=== PATIENT | female | born 1990 | race Caucasian/White ===

== ENCOUNTER 2016-10-09 06:49 | Inpatient (IN) | payer OTHER, MEDICAID ==
[~2016-10-09] VITALS: Ht 177.8 cm; Wt 146.3 kg
--- NOTE | ~2016-10-09 | OR ---
PATIENT'S NAME: MENA ALBA [facility] AGE: 26 Y [address] ROOM: [place] [id number] LOCATION: [facility] ADMIT DATE: 10/09/2016 OR/Procedure Report DISCHARGE DATE: FAMILY PHYSICIAN: PHYSICIAN, NO ATTENDING PHYSICIAN: NAEEM CEE SURGEON: Naeem Cee MD [employer] MECHANIC: DATE OF PROCEDURE: 10/09/2016 PROCEDURE PERFORMED: Spontaneous vaginal delivery over intact perineum. PRE-DELIVERY DIAGNOSES: 1. Intrauterine at 39 weeks and 1 day. 2. History of infant with holoprosencephaly. 3. Obesity. POST-DELIVERY DIAGNOSES: 1. Intrauterine at 39 weeks and 1 day. 2. History of infant with holoprosencephaly. 3. Obesity. ANESTHESIA: With epidural. FINDINGS: A viable female weighing 7 pounds 5 ounces. score of 8 and 9. Intact placenta. Three-vessel cord. Normal-appearing cervix, vagina, and perineum. Right periurethral laceration, hemostatic at completion of repair. ESTIMATED BLOOD LOSS: 400 mL. ANTIBIOTICS: None indicated. SPECIMENS: Cord blood. Placenta was not sent for pathology. COMPLICATIONS: None. DISPOSITION: The patient and remained in room. INDICATIONS FOR PROCEDURE: The patient is a 26-year-old G4, P3-0-0-3, who presented for a scheduled elective induction of labor at 39 weeks on October 09, 2016. The patient's cervix was 1 cm dilated on presentation and she was given a dose of Cytotec. She then progressed to 3 cm and was started on IV Pitocin. She progressed all the rest of the way to complete. DESCRIPTION OF PROCEDURE: The patient was placed in dorsal lithotomy PATIENT'S NAME: MENA ALBA [facility] AGE: 26 Y [address] ROOM: [address] [id number] LOCATION: [facility] ADMIT DATE: 10/09/2016 OR/Procedure Report DISCHARGE DATE: FAMILY PHYSICIAN: PHYSICIAN, NO ATTENDING PHYSICIAN: NAEEM CEE position, and vagina was prepped in the usual sterile fashion. She was placed in the dorsal lithotomy position in stirrups. With maternal expulsive efforts, the head was delivered. With the assistance of gentle downward and then upward traction, the shoulders were delivered, followed by the remainder of the body. Infant was placed on mother's chest and was noted to have a vigorous cry. The cord was clamped and cut. Cord blood was obtained and IV Pitocin was started per protocol. Gentle downward traction was placed on the cord and the placenta was delivered spontaneously and intact shortly thereafter. The cervix, vagina, and perineum were inspected for lacerations with the findings of right periurethral laceration, which was repaired per routine with 4-0 Vicryl. The patient was noted to have some increased free flow. Bimanual massage was performed and lower uterine segment was cleared of clots. The patient continued to have a slightly increased free flow, and she was given one dose of IM Methergine and 600 mcg of rectal Cytotec were placed. Free flow improved. POSTOPERATIVE CONDITION: The patient remained in her room and appeared to be in stable condition. COUNT RESULTS: All needle, sponge, and instrument counts were noted to be correct x2. NAEEM CEE MD GT/modl /[id number] d: 10/10/16 0143 t: 10/14/16 0429, OPERATIVE SUMMARY
[2016-10-09 07:26] LABS: BASOPHIL % 0.1 %; EOSINOPHIL % 0.5 %; HEMATOCRIT 34.1 % (33.0-46.0); HEMOGLOBIN 11.3 g/dL (11.0-15.0); IMMATURE GRANULOCYTE % 0.3 %; LYMPHOCYTE # 1.1 K/uL (0.8-4.0); LYMPHOCYTE % 14.1 %; MCH 26.5 pg (27.0-34.0); MCHC 33.1 gm/dL (32.0-36.5); MONOCYTE # 0.3 K/uL (0.0-1.0); MONOCYTE % 4.5 %; MPV 10.5 fl (9.4-12.4); NEUTROPHIL # (ANC) 6.1 K/uL (1.8-7.8); NEUTROPHIL % 80.5 %; NRBC % 0 /100WBC (0-0.00); PLATELET COUNT 202 K/uL (150-450); RBC 4.26 M/uL (3.50-5.00); RDW-CV 14.3 % (11.9-14.6); WBC 7.6 K/uL (4.0-11.0)
[2016-10-09] MEDS ORDERED: PRENATAL 1+1)(P1 TAB PO (08:46)
[2016-10-09] MEDS ORDERED: FOLIC ACID1 MG PO (08:46)
[2016-10-09] MEDS ORDERED: TUMS200 MG PO (08:47)
--- NOTE | 2016-10-09 18:08 | NUR ---
Pt 1cm/70%/-3 on admit. Cytotec x1 dose. Pitocin stephany @ 21mu/min. Pt now 5cms/75%/-2. requests Pitocin be maintained @ this rate. FHR stable, ctxs q 2-3. Pt comfortable w/epidural. L[place] in place. 650mls emptied. FHR reactive. VSS. & friend attentive @ bedside.
--- NOTE | 2016-10-10 05:02 | NUR ---
Last VS: T:98.0 P:69 R: 16 BP: 109/63 Pain rating: . Last pain med: Percocet Medicated at: 0400 Effective: Yes Breasts: SOFT Nipples: Fundus: FIRM AT UMBILICAL Lochia: RHUBRA Epis/Perineum: TENDER Voiding well: YES Significant event: STATES AT 0200 HER FLOW ON THE PAD WAS MODERATE WITH 1 CLOT AND STRINGY TISSUE. THAT PAD WAS WORN FOR OVER 2 HRS. IS BOTTLE FEEDING . NEEDS REINFORCEMENT WITH FEEDINGS. REQUESTS TO BE DISMISSED LATER THIS EVENING. .
[2016-10-10 06:18] LABS: BASOPHIL % 0.4 %; EOSINOPHIL # 0.1 K/uL (0.0-0.5); EOSINOPHIL % 0.6 %; HEMATOCRIT 31.9 % (33.0-46.0); HEMOGLOBIN 10.2 g/dL (11.0-15.0); IMMATURE GRANULOCYTE % 0.3 %; LYMPHOCYTE # 1.8 K/uL (0.8-4.0); LYMPHOCYTE % 22.9 %; MCV 81.4 fl (83.0-98.0); MONOCYTE # 0.5 K/uL (0.0-1.0); MONOCYTE % 6.6 %; MPV 10.6 fl (9.4-12.4); NEUTROPHIL # (ANC) 5.4 K/uL (1.8-7.8); NEUTROPHIL % 69.2 %; NRBC % 0 /100WBC (0-0.00); PLATELET COUNT 185 K/uL (150-450); RBC 3.92 M/uL (3.50-5.00); RDW-CV 14.4 % (11.9-14.6); WBC 7.7 K/uL (4.0-11.0)
[2016-10-10] MEDS ORDERED: SURFAK240 MG PO (11:09)
[2016-10-10] MEDS ORDERED: MOTRIN800 MG PO (11:10)
[2016-10-10] MEDS ORDERED: NORCO 5-325 TA1 EACH PO ×2 (11:16→11:17)
--- NOTE | 2016-10-10 16:59 | NUR ---
Significant Event: Follow up: VSS, hbg 10.2, from 11.3, SL dc'd. Medicated with Motrin @ 9615, & Percocet @ 9479, with effectiveness. Is dismissed, Need to update her med times. dismissal papers typed up.
== END 2016-10-10 21:15 | disposition disaster alternative care site (69) | DRG 775 ==
LOC: GOBS 06:49
PROVIDERS: ADMIT Obstetrics & Gynecology
PROC: 3E033VJ Introduction of Other Hormone into Peripheral Vein, Percutaneous Approach (ICD-10-PCS; principal; 2016-10-09)
PROC: 0UQMXZZ Repair Vulva, External Approach (ICD-10-PCS; 2016-10-09)
DX: O99.214 Obesity complicating childbirth (principal); Z37.0 Single live birth; E66.9 Obesity, unspecified; Z3A.39 39 weeks gestation of pregnancy; O71.82 Other specified trauma to perineum and vulva
CPT/HCPCS: J2001; J2210; J2590; J3010; J7120